=== PATIENT | female | born 1945 | race Caucasian/White ===

== ENCOUNTER 2018-05-31 12:30 | Day surgery (SDC) | payer OTHER ==
[~2018-05-31] VITALS: Ht 167.6 cm; Wt 100.9 kg
[~2018-05-31 12:30] MED LIST: PROPOFOL 200 MG INJ ONE
[2018-05-31 13:26] VITALS: Ht 167.6 cm; Wt 100.9 kg
[2018-05-31] MEDS ORDERED: GUAIFENESIN PO (14:05)
[2018-05-31] MEDS ORDERED: DEXTROMETHORPHAN PO (14:05)
[2018-05-31] MEDS ORDERED: CA C1TAB35 PO (14:05)
[2018-05-31] MEDS ORDERED: ASPI-903 PO (14:05)
[2018-05-31] MEDS ORDERED: DOCU-144 PO (14:05)
[2018-05-31] MEDS ORDERED: NAPR275T83 PO (14:05)
[2018-05-31] MEDS ORDERED: FLUT16SP17 NASAL (14:05)
[2018-05-31] MEDS ORDERED: MTF1000T PO (14:05)
[2018-05-31] MEDS ORDERED: ATOR40TA68 PO (14:05)
[2018-05-31] MEDS ORDERED: TRAM50TA2 PO (14:05)
[2018-05-31] MEDS ORDERED: OMEP20CA16 PO (14:05)
[2018-05-31] MEDS ORDERED: HYDR28OI6 TP (14:05)
[2018-05-31 14:20] VITALS: BP 131/62; PULSE 86; RESP 26
--- NOTE | 2018-05-31 14:24 | PREAC ---
Date/Time of Note Date/Time of Note DATE: 05/31/18 TIME: 14:23 Anesthesia Eval and Record Evaluation Time Pre-Procedure Interview DATE: 05/31/18 TIME: 14:23 Age 72 Sex female NPO: 8 hrs Preoperative diagnosis DYSPHAGHIA, SCREENING Planned procedure EGD AND COLON Past Medical History Past Medical History: Includes Cardio: HTN Endo: Diabetes Musculoskeletal: Osteoarthritis Surgery & Anesthesia Issues No known issue Meds Anticoagulation: No Beta Lonnie within 24 hr: No Reason Beta Lonnie not given: Pt. not on B-Lonnie Reported Medications Tramadol HCl (Tramadol HCl) 50 Mg Tablet, 50 MG PO TID, #60 TAB 05/31/18 Omeprazole* (Omeprazole*) 20 Mg Capsule.dr, 20 MG PO DAILY, #30 CAP 05/31/18 Naproxen Sodium* (Naproxen*) 275 Mg Tablet, 500 MG PO BID PRN for PAIN AND/OR INFLAMMATION, TAB 05/31/18 Metformin* (Glucophage*) 1,000 Mg Tablet, 1000 MG PO BID, #60 TAB 05/31/18 Hydrocortisone Acetate (ANTI-ITCH) 28 Gm Oint...g., 28 GM TP 05/31/18 Fluticasone Propionate* (Fluticasone Propionate* Nasal) 50 Mcg/[place] - 16 Gm Spr ay.susp, 1 SPRAY NASAL DAILY, #1 BOTTLE TO EACH NOSTRIL 05/31/18 Docusate Sodium* (Colace*) 100 Mg Capsule, 100 MG PO TID PRN for CONSTIPATION, #60 CAP 05/31/18 [Dextrometh/Guaif] No Conflict Check, PO DAILY PRN for COUGH 05/31/18 Ca Carb/D3/Argnin/Inos/Silicon (Bone Density Calcium + D Cplt) 1 Each Tablet, 1 EACH PO DAILY, TAB 05/31/18 Atorvastatin* (Atorvastatin*) 40 Mg Tablet, 20 MG PO QHS, #30 TAB 05/31/18 Aspirin* (Aspirin* Chew) 81 Mg Tab.chew, 81 MG PO DAILY, TAB.CHEW 05/31/18 Meds reviewed: Yes Allergies Coded Allergies: gabapentin (Verified Allergy, Unknown, 05/31/18) Allergies Reviewed: Yes Labs/Studies Labs Reviewed: Reviewed by anesthesiologist test: N/A Pre-procedure Exam Last vitals Vital Signs Date Temp Pulse Resp B/P (MAP) Pulse Ox O2 O2 Flow FiO2 Time Delivery Rate 05/31/18 98.7 86 26 131/62 97 Room Air 14:20 (85) Airway: Adequate mouth opening, Adequate thyromental dist Mallampati: Mallampati II Teeth: Normal Lung: Normal Heart: Normal ASA Physical Status ASA physical status: 2 Emergency: None Planned Anesthetic General/MAC: MAC Planned Pain Management Parenteral pain med Pre-operative Attestations Prior to commencing anesthesia and surgery, the patient was re-evaluated, there was verification of: *The patient's identity *The results of appropriate recent lab work and preoperative vital signs *The above evaluation not changing prior to induction *Anesthetic plan, risk benefits, alternative and complications discussed with patient/family; questions answered; patient/family understands, accepts and wishes to proceed. NITO DONIS May 31, 2018 14:23
[2018-05-31] MEDS ORDERED: LIDOCAINE 2% (SDV) 5 ML INJ ONE ×2 (14:26)
--- NOTE | 2018-05-31 14:26 | HPN ---
Date/Time of Note Date/Time of Note DATE: 05/31/18 TIME: 14:26 Interval H&P Admission Note Pt. seen H&P reviewed: No system changes GISSEL VEE May 31, 2018 14:26
[2018-05-31] MEDS ORDERED: ONDANSETRON 4 MG INJ IV PRN (14:30)
[2018-05-31] MEDS ORDERED: FENTAnyl 50 MCG/ML VIAL IV PRN (14:30)
[2018-05-31] MEDS ORDERED: EPHEDrine SULFATE 50 MG/5 ML SYG IV PRN (14:30)
[2018-05-31] MEDS ORDERED: LABETALOL HCL 20MG INJ IV PRN (14:30)
[2018-05-31] MEDS ORDERED: hydrALAzine 20 MG INJ IV PRN (14:30)
--- NOTE | 2018-05-31 15:16 | PAC ---
Date/Time of Note Date/Time of Note DATE: 05/31/18 TIME: 15:16 Post-Anesthesia Notes Post-Anesthesia Note Last documented vital signs Vital Signs Date Temp Pulse Resp B/P (MAP) Pulse Ox O2 O2 Flow FiO2 Time Delivery Rate 05/31/18 98.7 86 26 131/62 97 Room Air 1513 (85) Activity: WNL Respiratory function: WNL Cardiovascular function: WNL Mental status: Baseline Pain reasonably controlled: Yes Hydration appropriate: Yes Nausea/Vomiting absent: Yes NITO DONIS May 31, 2018 15:16
[2018-05-31 15:28] VITALS: BP 131/62; PULSE 87; RESP 24
== END 2018-05-31 16:51 | disposition home or self-care (01) ==
LOC: GIL 12:30
PROVIDERS: ATTEND Internal Medicine Gastroenterology
DX: Z12.11 Encounter for screening for malignant neoplasm of colon (principal); K64.4 Residual hemorrhoidal skin tags; K64.8 Other hemorrhoids; K57.30 Diverticulosis of large intestine without perforation or abscess without bleeding; I10 Essential (primary) hypertension; E11.9 Type 2 diabetes mellitus without complications
CPT/HCPCS: 43239; 45378; 82962; 88305; 88312; Z7610